=== PATIENT | female | born 1990 | race African-American/Black ===

== ENCOUNTER 2019-09-10 08:41 | Emergency (ER) | payer SELFPAY ==
[~2019-09-10] VITALS: Ht 154.9 cm; Wt 71.2 kg
[2019-09-10 08:47] VITALS: Ht 154.9 cm; Wt 71.2 kg
[2019-09-10 10:08] LABS: microscopic required? NO
[2019-09-10 10:10] LABS: CALCIUM 8.9 mg/dL (8.5-10.1); CARBON DIOXIDE 31.4 mmol/L (21-32); CHLORIDE SERUM 107 mmol/L (98-107); GFR1 > 60 mL/min; GLUCOSE SERUM 78 mg/dL (74-106); POTASSIUM SERUM 3.7 mmol/L (3.5-5.1); SODIUM SERUM 145 mmol/L (136-145)
[2019-09-10 10:12] LABS: BASOPHIL % 0.4 % (0-2); PLATELET COUNT 253 x10^3mcL (130-400); RED CELL DISTRIBUTION WIDTH 14.4 % (11.5-14.5)
[2019-09-10 10:15] LABS: ALBUMIN 3.6 g/dL (3.4-5.0); ALKALINE PHOSPHATASE 84 U/L (46-116); ALT/SGPT 18 U/L (14-59); AST/SGOT 14 U/L (15-37); BILIRUBIN TOTAL 0.3 mg/dL (0.20-1.00); LIPASE 156 IU/L (73-393); TOTAL PROTEIN, SERUM 7.9 g/dL (6.4-8.2)
[2019-09-10 10:33] LABS: UA SPECIFIC GRAVITY >=1.030 (1.005-1.035); urine erythrocyte NEGATIVE (NEGATIVE)
[2019-09-10 13:08] VITALS: BP 98/54
== END 2019-09-10 13:08 | disposition home or self-care (01) ==
LOC: ED 08:41
PROVIDERS: Emergency Medicine
DX: R10.13 Epigastric pain (principal); R11.10 Vomiting, unspecified; R19.7 Diarrhea, unspecified; R10.12 Left upper quadrant pain; Z88.8 Allergy status to other drugs, medicaments and biological substances
CPT/HCPCS: 87804; J2405; J3010; Q0092

== ENCOUNTER 2019-11-08 08:48 | Emergency (ER) | payer MEDICAID ==
[~2019-11-08] VITALS: Ht 154.9 cm; Wt 73.0 kg
[2019-11-08 08:54] VITALS: BP 115/69; Ht 154.9 cm; Wt 73.0 kg
== END 2019-11-08 09:35 | disposition home or self-care (01) ==
LOC: ED 08:48
DX: K08.89 Other specified disorders of teeth and supporting structures (principal); Z88.8 Allergy status to other drugs, medicaments and biological substances